=== PATIENT | female | born 1985 | race American Indian/Alaskan Native ===

== ENCOUNTER 2017-02-09 12:48 | Emergency (ER) | payer MEDICAID, OTHER ==
[2017-02-09 13:20] VITALS: BP 150/86
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
[2017-02-09] MEDS ORDERED: Sodium Chloride 0.9% 10 ML Syringe FLUSH PRN (13:37)
[2017-02-09] MEDS ORDERED: Sodium Chloride 0.9% 1,000 ML IV SCH (13:45)
[2017-02-09] MEDS ORDERED: Ondansetron 4 MG/2 ML SDV IV ONE (13:52)
[2017-02-09 14:10] LABS: CHLORIDE,CL 102 mmol/L (101-111); SODIUM,NA 137 mmol/L (135-145)
[2017-02-09] MEDS ORDERED: Iopamidol 612 MG/ML 100 ML Bottle IVPUSH ONE (14:19)
== END 2017-02-09 17:21 | disposition home or self-care (01) ==
LOC: DL.ED 12:48
DX: S20.221A Contusion of right back wall of thorax, initial encounter (principal); S40.011A Contusion of right shoulder, initial encounter; S40.812A Abrasion of left upper arm, initial encounter; F17.210 Nicotine dependence, cigarettes, uncomplicated; E03.9 Hypothyroidism, unspecified; Z88.0 Allergy status to penicillin; Z88.2 Allergy status to sulfonamides; Z90.49 Acquired absence of other specified parts of digestive tract; V89.2XXA Person injured in unspecified motor-vehicle accident, traffic, initial encounter
CPT/HCPCS: 36415; 70450; 71260; 72125; 74177; 80053; 80305; 81001; 81025; 84703; 85025; 85610; 85730; 96361; 96374; 99284; G0480; J2405; J7030; J7050; Q9967

== ENCOUNTER 2017-06-05 18:15 | Emergency (ER) | payer MEDICAID, OTHER ==
[2017-06-05 17:47] VITALS: BP 123/59
[~2017-06-05 18:15] MED LIST: Aspirin 81 MG Tab.Chew PO ONE; Nitroglycerin 0.4 MG Tab.SL SL PRN; Sodium Chloride 0.9% 10 ML Syringe FLUSH PRN
[2017-06-05 18:19] LABS: CHLORIDE,CL 103 mmol/L (101-111); SODIUM,NA 139 mmol/L (135-145)
--- NOTE | 2017-06-05 18:25 | EDM.PDOC ---
<Bret Sullivan - Last Filed: 06/05/17 19:18> ED HPI GENERAL MEDICAL PROBLEM - General Chief Complaint: Chest Pain Stated Complaint: CHEST PAIN, SP DANIELLE AMB Time Seen by Provider: 06/05/17 18:19 Source of Information: Reports: Patient History Limitations: Reports: No Limitations - History of Present Illness INITIAL COMMENTS - FREE TEXT/NARRATIVE: 32 yo female who presents with chest pain that increased with right arm range of motion. States that she was pushing her cart at work and the pain began and she became flushed. Denies radiation. EMS gave 1 SL nitro and pain decreased to a 7 from a 9. /10. denies n/v but states she had some mild shortness of breath. No other complaints. Onset: Today, Sudden Location: Reports: Chest Quality: Reports: Ache, Pressure Severity: Severe Improves with: Reports: Medication Worsens with: Reports: Movement Context: Reports: Activity Associated Symptoms: Reports: No Other Symptoms Right Upper Chest Pain Score (Numeric/FACES): 9 - Related Data Allergies Allergy/AdvReac Type Severity Reaction Status Date / Time Penicillins Allergy Hives Verified 06/05/17 18:25 Sulfa (Sulfonamide Allergy Hives Verified 06/05/17 18:25 Antibiotics) Home Meds: Home Meds . [No Known Home Meds] 09/21/14 [History] Past Medical History - Past Health History Medical/Surgical History: Denies Medical/Surgical History HEENT History: Reports: None Cardiovascular History: Reports: None Respiratory History: Reports: None Genitourinary History: Reports: None RECEPTION History: Reports: , Spontaneous Musculoskeletal History: Reports: None Neurological History: Reports: None Psychiatric History: Reports: None Endocrine/Metabolic History: Reports: Diabetes, Gestational, Hypothyroidism Hematologic History: Reports: Blood Transfusion(s), Iron Deficiency Immunologic History: Reports: None Oncologic (Cancer) History: Reports: None Dermatologic History: Reports: None - Infectious Disease History Infectious Disease History: Reports: None - Past Surgical History Female Surgical History: Reports: Section Social & Family History - Family History Family Medical History: Noncontributory - Tobacco Use Smoking Status *Q: Current Every Day Smoker Years of Tobacco use: 18 Packs/Tins Daily: 0.2 Month Tobacco Last Used: 1 - Caffeine Use Caffeine Use: Reports: Coffee, Soda - Alcohol Use Days Per Week of Alcohol Use: 0 - Recreational Drug Use Recreational Drug Use: No - Living Situation & Occupation Living situation: Reports: with Family Occupation: Unemployed ED ROS GENERAL - Review of Systems Review Of Systems: ROS reveals no pertinent complaints other than HPI. ED EXAM, GENERAL - Physical Exam Exam: See Below Exam Limited By: No Limitations General Appearance: Alert, WD/WN, No Apparent Distress Eye Exam: Bilateral Eye: PERRL Head: Atraumatic, Normocephalic Neck: Normal Inspection, Supple, Non-Tender, Full Range of Motion Respiratory/Chest: No Respiratory Distress, Lungs Clear, Normal Breath Sounds, No Accessory Muscle Use, Chest Non-Tender Cardiovascular: Normal Peripheral Pulses, Regular Rate, Rhythm, No Edema, No Gallop, No JVD, No Murmur, No Rub GI/Abdominal: Normal Bowel Sounds, Soft, Non-Tender, No Organomegaly, No Distention, No Abnormal Bruit, No Mass Extremities: Normal Inspection, Non-Tender, No Pedal Edema, Normal Capillary Refill, Limited Range of Motion (RUE limited due to pain in chest) Neurological: Alert, Oriented Skin Exam: Warm, Dry, Intact, Normal Color, No Rash Course - Vital Signs Last Recorded V/S: Last Vital Signs Temp 36.6 C 06/05/17 17:47 Pulse 95 06/05/17 17:47 Resp 21 H 06/05/17 17:47 BP 123/59 L 06/05/17 17:47 Pulse Ox 96 06/05/17 17:47 - Orders/Labs/Meds Orders: Active Orders 24 hr Category Date Time Status Cardiac Monitoring [RC] . DIRECTED Care 06/05/17 17:43 Active EKG Documentation Completion [RC] STAT Care 06/05/17 17:44 Active DRUG SCREEN URINE BIORAD [URCHEM] Stat Lab 06/05/17 17:43 Uncollected HCG QUALITATIVE,URINE [URCHEM] Stat Lab 06/05/17 17:43 Uncollected UA W/MICROSCOPIC [URIN] Stat Lab 06/05/17 17:43 Uncollected Nitroglycerin [Nitrostat] Med 06/05/17 17:43 Active 0.4 mg SL Q5M PRN Sodium Chloride 0.9% [Saline Flush] Med 06/05/17 17:43 Active 10 ml FLUSH ASDIRECTED PRN Saline Lock Insert [OM.PC] Stat Oth 06/05/17 17:43 Ordered Medication Orders Nitroglycerin (Nitrostat) 0.4 mg SL Q5M PRN PRN Reason: Chest Pain Stop: 06/06/17 17:43 Sodium Chloride (Saline Flush) 10 ml FLUSH ASDIRECTED PRN PRN Reason: Keep Vein Open Last Admin: 06/05/17 17:59 Dose: 10 ml Labs: Laboratory Tests 06/05/17 06/05/17 06/05/17 Range/Units 17:54 17:54 17:54 WBC 9.4 (5.0-10.0) 10^3/uL RBC 4.35 (4.2-5.4) 10^6/uL Hgb 12.1 (12.0-16.0) g/dL Hct 35.6 L (37.0-47.0) % MCV 81.8 (80-100) fL MCH 27.8 (27.0-34.0) pg MCHC 34.0 (33.0-35.0) g/dL Plt Count 198 (150-450) 10^3/uL Neut % (Auto) 43.8 (42.2-75.2) % Lymph % (Auto) 46.2 (20.5-50.1) % Branch % (Auto) 8.5 H (2-8) % Eos % (Auto) 1.4 (1.0-3.0) % Baso % (Auto) 0.1 (0.0-1.0) % D-Dimer, Quantitative (0-400) ng/mL Sodium 139 (135-145) mmol/L Potassium 3.8 (3.6-5.0) mmol/L Chloride 103 (101-111) mmol/L Carbon Dioxide 26.0 (21.0-31.0) mmol/L Anion Gap 13.8 BUN 13 (7-18) mg/dL Creatinine 0.3 L (0.6-1.3) mg/dL Est Cr Clr Drug Dosing TNP Estimated GFR (MDRD) > 60 Glucose 115 H (74-105) mg/dL Calcium 9.0 (8.4-10.2) mg/dl Phosphorus 3.3 (2.5-4.6) mg/dL Magnesium 1.5 L (1.8-2.5) mg/dL Creatine Kinase 36 (26-174) IU/L Creatine Kinase Index 4.4 H (0-2.4) % CK-MB (CK-2) 1.60 (0.4-4.7) ng/mL Troponin I < 0.02 (0.00-0.02) ng/ml 06/05/17 Range/Units 17:54 WBC (5.0-10.0) 10^3/uL RBC (4.2-5.4) 10^6/uL Hgb (12.0-16.0) g/dL Hct (37.0-47.0) % MCV (80-100) fL MCH (27.0-34.0) pg MCHC (33.0-35.0) g/dL Plt Count (150-450) 10^3/uL Neut % (Auto) (42.2-75.2) % Lymph % (Auto) (20.5-50.1) % [place] % (Auto) (2-8) % Eos % (Auto) (1.0-3.0) % Baso % (Auto) (0.0-1.0) % D-Dimer, Quantitative < 100 (0-400) ng/mL Sodium (135-145) mmol/L Potassium (3.6-5.0) mmol/L Chloride (101-111) mmol/L Carbon Dioxide (21.0-31.0) mmol/L Anion Gap BUN (7-18) mg/dL Creatinine (0.6-1.3) mg/dL Est Cr Clr Drug Dosing Estimated GFR (MDRD) Glucose (74-105) mg/dL Calcium (8.4-10.2) mg/dl Phosphorus (2.5-4.6) mg/dL Magnesium (1.8-2.5) mg/dL Creatine Kinase (26-174) IU/L Creatine Kinase Index (0-2.4) % CK-MB (CK-2) (0.4-4.7) ng/mL Troponin I (0.00-0.02) ng/ml Meds: Medications Generic Name Dose Route Start Last Admin Trade Name Freq PRN Reason Stop Dose Admin Nitroglycerin 0.4 mg 06/05/17 17:43 Nitrostat SL 06/06/17 17:43 Q5M PRN Chest Pain Sodium Chloride 10 ml 06/05/17 17:43 06/05/17 17:59 Saline Flush FLUSH 10 ml ASDIRECTED PRN Administration Keep Vein Open Discontinued Medications Generic Name Dose Route Start Last Admin Trade Name Melina PRN Reason Stop Dose Admin Aspirin 324 mg 06/05/17 17:43 06/05/17 17:58 Aspirin PO 06/05/17 17:44 Not Given ONETIME ONE Cyclobenzaprine HCl 10 mg 06/05/17 19:14 06/05/17 19:19 Flexeril PO 06/05/17 19:15 10 mg ONETIME ONE Administration Ibuprofen 800 mg 06/05/17 19:14 06/05/17 19:20 Motrin PO 06/05/17 19:15 Not Given ONETIME ONE Ketorolac Tromethamine 30 mg 06/05/17 19:10 06/05/17 19:13 Toradol IM 06/05/17 19:11 30 mg ONETIME ONE Administration Departure - Departure Disposition: Home, Self-Care 01 Clinical Impression: Muscle strain of anterior chest wall Instructions: Nonspecific Chest Pain, [id number] Forms: ED Department Discharge Additional Instructions: 1) rest and avoid bending lifting straining 2) try heat to sore area 3) follow up at clinic or recheck as needed rx given; flexeril 10mg tid prn x 12 <Glenroy Sanon - Last Filed: 06/05/17 19:44> Course - Re-Assessments/Exams Free Text/Narrative Re-Assessment/Exam: 06/05/17 19:04 re-exam; sleeping arousable no c/o as long as she doesn't move. states was at work pushing her cart and her arms got painful and couldn't bend them. had sharp chest pain across her chest few months ago that woke her up from deep sleep that one lasted a long time but finally went away. 06/05/17 19:41 RE-EXAM; S/P TORADOL = much better pain almost gone. states the cart she pushes is very heavy. Departure - Departure Time of Disposition: 19:42 Condition: Good
[2017-06-05] MEDS ORDERED: Ketorolac 30 MG/ML SDV IM ONE (19:10)
[2017-06-05] MEDS ORDERED: Ibuprofen 800 MG Tab PO ONE (19:14)
[2017-06-05] MEDS ORDERED: Cyclobenzaprine 10 MG Tab PO ONE (19:14)
[2017-06-05] MEDS ORDERED: Acetaminophen/HYDROcodone 325-10 MG Tab ONE (19:48)
[2017-06-05] MEDS ORDERED: Acetaminophen/HYDROcodone 325-10 MG Tab PO ONE (19:48)
--- NOTE | 2017-06-08 10:21 | EKG ---
06/05/2017 - [facility]IL[facility] GOMEZ [facility]OW - TIME: 1738 hours. EKG shows normal sinus rhythm. [facility] /[id number]
== END 2017-06-05 19:53 | disposition home or self-care (01) ==
LOC: DL.ED 18:15
DX: S29.011A Strain of muscle and tendon of front wall of thorax, initial encounter (principal); E03.9 Hypothyroidism, unspecified; F17.210 Nicotine dependence, cigarettes, uncomplicated; Z88.0 Allergy status to penicillin; Z88.2 Allergy status to sulfonamides; X50.9XXA Other and unspecified overexertion or strenuous movements or postures, initial encounter; Y99.0 Civilian activity done for income or pay
CPT/HCPCS: 36415; 71010; 80048; 82550; 82553; 83735; 84100; 84484; 85025; 85379; 93005; 96372; 99285; A9270; J1885; J7050

== ENCOUNTER 2018-12-09 23:12 | Emergency (ER) | payer MEDICAID, OTHER ==
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
[2018-12-09 23:48] VITALS: BP 157/94
[2018-12-10 00:06] LABS: ANION GAP 14.9; CHLORIDE,CL 103 mmol/L (101-111); SODIUM,NA 132 mmol/L (135-145)
[2018-12-10] MEDS ORDERED: Iopamidol 612 MG/ML 100 ML Bottle IVPUSH ONE (00:06)
[2018-12-10] MEDS ORDERED: Acetaminophen 325 MG Tab PO ONE (01:22)
== END 2018-12-10 01:39 | disposition home or self-care (01) ==
LOC: DL.ED 23:12
DX: S06.0X1A Concussion with loss of consciousness of 30 minutes or less, initial encounter (principal); S20.212A Contusion of left front wall of thorax, initial encounter; S30.1XXA Contusion of abdominal wall, initial encounter; S00.83XA Contusion of other part of head, initial encounter; S10.93XA Contusion of unspecified part of neck, initial encounter; S80.11XA Contusion of right lower leg, initial encounter; Z88.0 Allergy status to penicillin; Z88.2 Allergy status to sulfonamides; W52.XXXA Crushed, pushed or stepped on by crowd or human stampede, initial encounter
CPT/HCPCS: 36415; 70450; 70486; 71260; 72125; 74177; 80053; 81001; 85025; 99285; A9270; G0480; Q9967